=== PATIENT | female | born 1985 | race Two or more races ===

== ENCOUNTER → 2021-01-11 | Outpatient (CLI) | payer OTHER ==
--- NOTE | 2021-01-11 16:18 | RAD ---
EXAMINATION: US DPLX VENOUS EXTREMITY LOWER RT (LOWER EXTREMITY VENOUS ULTRASOUND) CLINICAL HISTORY: Right lower extremity pain TECHNIQUE: Sonographic grayscale images obtained of the right lower extremity deep venous system with color flow Doppler, compression, and augmentation techniques as indicated. Images obtained and stor ed in a permanent archive. COMPARISON: None FINDINGS: No evidence of absent flow or incompressibility within the common femoral vein, femoral vein, or popl iteal vein. Visualized calf veins appear patent on limited evaluation. IMPRESSION: No evidence of right lower extremity DVT. Electronically signed by: Hitesh Jimenez DO (01/11/2021 4:16 PM) [id number]
== END ==
LOC: US 15:41
PROVIDERS: ATTEND Internal Medicine
DX: M79.604 Pain in right leg (principal)
CPT/HCPCS: 93971